=== PATIENT | female | born 1985 | race Caucasian/White ===

== ENCOUNTER 2018-08-04 16:46 | Observation (INO) | payer SELFPAY ==
[~2018-08-04] VITALS: Ht 160 cm; Wt 74.8 kg
[2018-08-04] MEDS ORDERED: RINGERS SOLUTION,LACTATED 1,000 ML IV ONE (17:40)
[2018-08-04] MEDS ORDERED: RINGERS SOLUTION,LACTATED 1,000 ML IV SCH (17:45)
== END 2018-08-04 19:05 | disposition home or self-care (01) ==
LOC: 4S 16:46
PROVIDERS: ADMIT Obstetrics & Gynecology; ATTEND Obstetrics & Gynecology
DX: Z34.03 Encounter for supervision of normal first pregnancy, third trimester (principal); Z3A.37 37 weeks gestation of pregnancy
CPT/HCPCS: 59025; 76805; 96360; J7120

== ENCOUNTER 2018-08-12 11:25 | Observation (INO) | payer OTHER ==
[~2018-08-12] VITALS: Ht 160 cm; Wt 76.4 kg
[2018-08-14] MEDS ORDERED: PREN1TAB80 PO (12:01)
[2018-08-14] MEDS ORDERED: METHY500 PO (12:01)
[2018-08-14 12:02] VITALS: BP 120/78
== END 2018-08-14 13:00 | disposition home or self-care (01) ==
LOC: 4S 08-14 11:35
PROVIDERS: ADMIT Obstetrics & Gynecology; ATTEND Obstetrics & Gynecology
DX: Z34.03 Encounter for supervision of normal first pregnancy, third trimester (principal); Z3A.39 39 weeks gestation of pregnancy
CPT/HCPCS: 59025; 76805; G0378

== ENCOUNTER 2018-08-16 03:53 | Inpatient (IN) | payer OTHER ==
[~2018-08-16] VITALS: Ht 160 cm; Wt 76.2 kg
[~2018-08-16 03:53] MED LIST: METHY500 PO; PREN1TAB80 PO
[2018-08-16 05:01] VITALS: BP 120/72
[2018-08-16] MEDS ORDERED: CITRIC ACID/SODIUM CITRATE 30 ML SOLUTION UDCUP PO PRN (06:15)
[2018-08-16] MEDS ORDERED: METOCLOPRAMIDE HCL 5 MG/ML 2 ML VIAL IVP PRN (06:15)
[2018-08-16] MEDS ORDERED: RINGERS SOLUTION,LACTATED 1,000 ML IV PRN (06:15)
[2018-08-16] MEDS ORDERED: OXYTOCIN 30 UNITS/LACT RINGERS 500 ML IV ONE ×2 (06:15→18:17)
[2018-08-16] MEDS ORDERED: MISOPROSTOL 25 MCG TABLET PO ONE (06:30)
[2018-08-16] MEDS: RINGERS SOLUTION,LACTATED 1,000 ML IV SCH ×5 (07:23→23:14)
[2018-08-16 07:30] LABS: BASOPHILS % (AUTO) 0.3 % (0.0-2.0); EOSINOPHILS % (AUTO) 0.9 % (1.0-6.0); HEMATOCRIT 35.4 % (36-46); HEMOGLOBIN 12.4 g/dL (12.0-16.0); LYMPHOCYTES # (AUTO) 1.5 K/uL (1.0-4.8); LYMPHOCYTES % (AUTO) 15.7 % (22.0-44.0); MEAN CORPUSCULAR HEMOGLOBIN 32.4 pg (26.0-34.0); MEAN CORPUSCULAR HGB CONC 35.1 G/dL (31.0-37.0); MEAN CORPUSCULAR VOLUME 92 fL (80-100); MONOCYTES # (AUTO) 0.8 K/uL (0.1-1.0); MONOCYTES % (AUTO) 7.8 % (2.0-9.0); NEUTROPHILS # (AUTO) 7.4 K/uL (1.8-7.7); NEUTROPHILS % (AUTO) 75.3 % (40.0-70.0); PLATELET COUNT (AUTO)-OB 151 K/uL (150-450); RED BLOOD CELL COUNT(AUTO) 3.83 MIL/uL (4.00-5.20); RED CELL DISTRIBUTION WIDTH 13.5 % (11.5-14.5)
[2018-08-16] MEDS ORDERED: OXYGEN THERAPY IH SCH ×3 (08:00→20:00)
[2018-08-16] MEDS: FentaNYL CITRATE-PF 100 MCG/2 ML VIAL IVP PRN ×2 (08:25→08:32)
[2018-08-16] MEDS ORDERED: OXYTOCIN 30 UNITS/LACT RINGERS 500 ML IV PRN (11:05)
[2018-08-16] MEDS ORDERED: ROPIVACAINE HCL/PF 0.2% 100 ML ED ONE (11:40)
[2018-08-16] MEDS ORDERED: DiphenhydrAMINE HCL 50 MG/ML VIAL IVP PRN ×2 (12:15→17:15)
[2018-08-16] MEDS ORDERED: ROPIVACAINE HCL/PF 0.2% 100 ML ED PRN (12:15)
[2018-08-16] MEDS ORDERED: ONDANSETRON HCL 4 MG/2 ML VIAL IVP PRN ×3 (12:15→17:15)
[2018-08-16] MEDS ORDERED: AMPICILLIN SODIUM 2 GM/NS 100 ML IV ONE (14:00)
[2018-08-16] MEDS ORDERED: MORPHINE SULFATE/PF 1 MG/ML 10 ML AMP ONE (16:26)
[2018-08-16] MEDS ORDERED: DEXAMETHASONE SOD PHOS 4 MG/ML VIAL ONE (16:26)
[2018-08-16] MEDS ORDERED: ONDANSETRON HCL 4 MG/2 ML VIAL ONE (16:26)
[2018-08-16] MEDS ORDERED: MIDAZOLAM HCL 2 MG/2 ML VIAL ONE (16:26)
[2018-08-16] MEDS ORDERED: LIDOCAINE/PF 2% 5 ML VIAL ONE (16:27)
[2018-08-16] MEDS ORDERED: KETOROLAC TROMETHAMINE 30 MG/ML VIAL ONE (16:27)
[2018-08-16] MEDS ORDERED: GUM MASTIC/STORAX/MSAL/ALCOHOL LIQUID 0.67 ML VIAL TP ONE ×2 (16:48→17:29)
[2018-08-16] MEDS ORDERED: OxyCODONE HCL/ACETAMINOPHEN 5-325 MG TABLET PO PRN ×3 (17:15→18:30)
[2018-08-16] MEDS ORDERED: HYDROmorphone 2 MG/ML SYRINGE IVP PRN (17:15)
[2018-08-16] MEDS ORDERED: NALOXONE HCL 0.4 MG/ML VIAL IVP PRN (17:15)
[2018-08-16] MEDS ORDERED: MEPERIDINE-PF 25 MG/ML VIAL IVP PRN (17:15)
[2018-08-16] MEDS ORDERED: FentaNYL CITRATE-PF 100 MCG/2 ML VIAL IVP PRN ×2 (17:15)
[2018-08-16] MEDS ORDERED: AMPICILLIN SODIUM 1 GM/NS 50 ML IV SCH (18:00)
[2018-08-16] MEDS ORDERED: FentaNYL CITRATE-PF 100 MCG/2 ML VIAL ONE (18:21)
[2018-08-16] MEDS ORDERED: LANOLIN 7 GM OINTMENT TP PRN (18:30)
[2018-08-16] MEDS: MAGNESIUM HYDROXIDE SUSPENSION 30 ML UDCUP PO SCH (21:00)
[2018-08-17] MEDS: KETOROLAC TROMETHAMINE 30 MG/ML VIAL IVP SCH ×3 (00:06→16:25)
[2018-08-17] MEDS: RINGERS SOLUTION,LACTATED 1,000 ML IV SCH ×2 (06:00→14:05)
[2018-08-17 06:41] LABS: BASOPHILS % (AUTO) 0.1 % (0.0-2.0); EOSINOPHILS % (AUTO) 0 % (1.0-6.0); HEMATOCRIT 33.6 % (36-46); HEMOGLOBIN 11.6 g/dL (12.0-16.0); LYMPHOCYTES # (AUTO) 1.4 K/uL (1.0-4.8); LYMPHOCYTES % (AUTO) 7.4 % (22.0-44.0); MEAN CORPUSCULAR HEMOGLOBIN 31.9 pg (26.0-34.0); MEAN CORPUSCULAR HGB CONC 34.6 G/dL (31.0-37.0); MEAN CORPUSCULAR VOLUME 92 fL (80-100); MONOCYTES # (AUTO) 1.1 K/uL (0.1-1.0); NEUTROPHILS # (AUTO) 16.4 K/uL (1.8-7.7); PLATELET COUNT (AUTO)-OB 155 K/uL (150-450); RED BLOOD CELL COUNT(AUTO) 3.65 MIL/uL (4.00-5.20); RED CELL DISTRIBUTION WIDTH 13.5 % (11.5-14.5)
[2018-08-17 06:49] LABS: NEUTROPHILS % (AUTO) 86.5 % (40.0-70.0)
[2018-08-17] MEDS ORDERED: OXYTOCIN 10 UNITS/ML VIAL IM ONE (07:23)
[2018-08-17] MEDS: MAGNESIUM HYDROXIDE SUSPENSION 30 ML UDCUP PO SCH ×2 (08:01→21:24)
[2018-08-17] MEDS: IBUPROFEN 800 MG TABLET PO PRN (23:47)
[2018-08-18] MEDS: IBUPROFEN 800 MG TABLET PO PRN ×3 (05:58→16:41)
[2018-08-18] MEDS ORDERED: PERCT PO (17:00)
[2018-08-18] MEDS ORDERED: IBUP-2071 PO (17:02)
[2018-08-18] MEDS ORDERED: DSS100 PO (17:04)
[2018-08-18] MEDS ORDERED: FERR-89 PO (17:07)
== END 2018-08-18 17:55 | disposition home or self-care (01) | DRG 788 ==
LOC: OBSVTOIN 03:53 → 4S 03:53
PROVIDERS: ADMIT Obstetrics & Gynecology; ATTEND Obstetrics & Gynecology
PROC: 10D00Z1 Extraction of Products of Conception, Low, Open Approach (ICD-10-PCS; principal; 2018-08-16)
DX: O76 Abnormality in fetal heart rate and rhythm complicating labor and delivery (principal); O69.81X0 Labor and delivery complicated by cord around neck, without compression, not applicable or unspecified; Z3A.39 39 weeks gestation of pregnancy; Z37.0 Single live birth
CPT/HCPCS: 86850; 86900; 86901; 87081; 89060; 90686; J0290; J0690; J1100; J1885; J2250; J2405; J2590; J2765; J2795; J3010; J3490; J7120